=== PATIENT | female | born 1985 | race Caucasian/White ===

== ENCOUNTER 2019-03-11 13:08 | Inpatient (IN) | payer OTHER ==
[~2019-03-11 13:08] MED LIST: Bupivacaine/Epinephrine 0.25% 30 ML VIAL ONE; Butorphanol Tartrate 1 MG/ML VIAL SLOW IVP PRN; Carboprost 250 MCG/ML AMP IM PRN; Diphenoxylate HCl/Atropine Tablet PO PRN; Docusate 100 MG CAP PO PRN; HYDROcodone/Acetaminophen 5/325 mg Tablet PO PRN; Lidocaine 1% (PF) 30 ML VIAL SC PRN; Methylergonovine 0.2 MG/ML VIAL IM PRN; Misoprostol 200 MCG TAB PR PRN; NS w/ Oxytocin 10 units 500 ML IV SCH; Ondansetron PF 4 MG/2 ML Vial IVP PRN; Promethazine HCl 25 MG/ML VIAL IM PRN
[2019-03-11 18:24] VITALS: BMI 25.0
[2019-03-11 18:30] LABS: Hemoglobin 10.3 g/dL (12.0-16.0); Mean Corpuscular HGB CONC 30.8 g/dL (32.0-36.0); Mean Corpuscular Hemoglobin 26.3 pg (27.0-31.0); Mean Corpuscular Volume 85.6 fL (78.0-98.0); Platelet Count 260 thou/uL (130-400); RBC Distribution Width 15.2 % (11.5-14.5); Red Blood Cell (RBC) Count 3.92 mill/uL (4.20-5.40); White Blood Cell (WBC) Count 9.8 thou/uL (4.8-10.8)
[2019-03-11 19:11] LABS: Syphilis Antibody Nonreactive (Nonreactive); Syphilis Antibody Index 0.04 S/CO (<1.00 Non-Reactive)
[2019-03-11 19:12] LABS: HBSAg Index 0.27 S/CO (0-0.99); Hep B Surf Ag Non-Reactive S/CO (NonReactive)
--- NOTE | 2019-03-11 20:00 | PDOC.EVN ---
Event Note - Event Note Event Note: Called to LDR. Pt. pushing resulting in precipitous of vigorous baby over intact perineum. Apgars pending. Placenta remained undelivered until arrival of Dr. Cuevas.
[2019-03-11] MEDS: NS w/ Oxytocin 10 units 500 ML IV SCH (20:45)
--- NOTE | 2019-03-11 20:52 | PDOC.LDHP ---
Labor and Delivery H&P HPI: 33 year old at 39 weeks and 3 days for elective induction of labor. Current gestational age (weeks): 39 Due date: 03/15/19 Grav: 5 Para: 2 Current complications: none Abnormal US findings: No Current medications: pre- vitamins Previous surgical history: none Allergies/Adverse Reactions: Allergies Allergy/AdvReac Type Severity Reaction Status Date / Time No Known Drug Allergies Allergy Verified 03/11/19 18:20 Social history: none - Physical Exam Vital signs reviewed and normal: yes General: NAD, resting Heart: RRR Lungs: nonlabored breathing Abdomen: NTTP Extremeties: no edema FHT: category 1 - Assessment L&D Assessment: elective induction at term - Plan Plan: admit to L&D, cervical ripening
[2019-03-11] MEDS ORDERED: Fentanyl 4 mcg/Bup 0.1% Cadd 100 ML ONE (22:35)
[2019-03-11] MEDS ORDERED: Acetaminophen 325 MG TAB PO PRN (23:11)
[2019-03-11] MEDS ORDERED: Eucerin (Mineral Oil/Petrolatum,White) 30 gm Jar TOP PRN (23:11)
[2019-03-11] MEDS ORDERED: Promethazine HCl 25 MG/ML VIAL IM PRN (23:11)
[2019-03-11] MEDS ORDERED: Lactated Ringer's 500 ML IV PRN (23:11)
[2019-03-11] MEDS ORDERED: Ondansetron PF 4 MG/2 ML Vial IVP PRN (23:11)
[2019-03-11] MEDS ORDERED: diphenhydrAMINE 50 MG/ML VIAL IVP PRN (23:11)
[2019-03-11] MEDS ORDERED: ePHEDrine/0.9% NaCl/PF SYRINGE 50 mg/10 ml SLOW IVP PRN (23:11)
[2019-03-11] MEDS: Lactated Ringer's 1,000 ML IV SCH (23:11)
[2019-03-11] MEDS ORDERED: Naloxone HCl 0.4 mg/ml Vial IVP PRN ×2 (23:11)
[2019-03-11] MEDS ORDERED: Fentanyl 4 mcg/Bupivacaine 0.1% Cassette 100 ML EPIDURAL SCH (23:15)
[2019-03-11] MEDS ORDERED: Communication Order-Pharmacy FS SCH (23:15)
[2019-03-11] MEDS: NS / Oxytocin 40 units/1000ml 1,000 ML IV PRN (23:30)
[2019-03-12] MEDS: NS / Oxytocin 40 units/1000ml 1,000 ML IV PRN (02:08)
[2019-03-12] MEDS ORDERED: Measles/Mumps/Rubella 10 MCG/0.5 ML VIAL SC ONE (03:11)
[2019-03-12] MEDS ORDERED: Adacel (T-DAP) 0.5 ML SYRINGE IM ONE (03:11)
[2019-03-12] MEDS ORDERED: Milk Of Magnesia 30 ML UDCUP PO PRN (03:11)
[2019-03-12] MEDS ORDERED: NS / Oxytocin 40 units/1000ml 1,000 ML IV SCH (03:11)
[2019-03-12] MEDS ORDERED: Methylergonovine 0.2 MG/ML VIAL IM PRN (03:11)
[2019-03-12] MEDS ORDERED: diphenhydrAMINE 25 MG CAP PO PRN (03:11)
[2019-03-12] MEDS ORDERED: Misoprostol 200 MCG TAB VAG PRN (03:11)
[2019-03-12] MEDS ORDERED: HYDROcodone/Acetaminophen 5/325 mg Tablet PO PRN ×2 (03:11)
[2019-03-12] MEDS ORDERED: Promethazine HCl 25 MG/ML VIAL IM PRN (03:11)
[2019-03-12] MEDS ORDERED: Preparation H Ointment 28 GM TUBE PR PRN (03:11)
[2019-03-12] MEDS ORDERED: Lanolin Ointment 7 GM TUBE TOP PRN (03:11)
[2019-03-12] MEDS ORDERED: Ondansetron PF 4 MG/2 ML Vial IVP PRN (03:11)
[2019-03-12] MEDS ORDERED: Bisacodyl 10 MG SUPP PR PRN (03:11)
[2019-03-12] MEDS ORDERED: Docusate Calcium (SURFAK) 240 MG CAP PO SCH (03:15)
[2019-03-12] MEDS: Ibuprofen 800 MG TAB PO SCH ×3 (06:38→20:57)
[2019-03-12 06:43] LABS: Hemoglobin 9.6 g/dL (12.0-16.0); Mean Corpuscular HGB CONC 30.5 g/dL (32.0-36.0); Mean Corpuscular Hemoglobin 26.2 pg (27.0-31.0); Platelet Count 210 thou/uL (130-400); RBC Distribution Width 14.9 % (11.5-14.5); Red Blood Cell (RBC) Count 3.67 mill/uL (4.20-5.40); White Blood Cell (WBC) Count 18.2 thou/uL (4.8-10.8)
[2019-03-12] MEDS: NS w/ Oxytocin 10 units 500 ML IV SCH (09:16)
[2019-03-12] MEDS: Lactated Ringer's 1,000 ML IV SCH ×2 (09:16→09:22)
[2019-03-12] MEDS: Ferrous Sulfate 325 MG TAB PO SCH ×2 (10:24→16:39)
[2019-03-12] MEDS: Docusate Calcium (SURFAK) 240 MG CAP PO SCH ×2 (10:25→20:57)
--- NOTE | 2019-03-12 20:21 | PDOC.PP ---
Post Progress Note Post Day #: 1 PO intake tolerated: yes Flatus: yes Ambulation: yes Vital Signs (12 hours) Temp Pulse Resp BP 03/12/19 17:00 97.7 F 57 L 18 111/59 L 03/12/19 12:07 98.3 F 64 20 100/55 L Weight Weight 160 lb - Physical Examination General: NAD Cardiovascular: no m/r/g, RRR Respiratory: clear to auscultation bilaterally Abdominal: + bowel sounds, lochia, no distention Extremities: negative homans (B) Neurological: no gross focal deficits Psychiatric: A&Ox3, normal affect (DC in AM) Result Diagrams: 03/12/19 06:32 Additional Labs: Post Labs Blood Type A POSITIVE 03/11/19 18:14 Hep Bs Antigen Non-Reactive S/CO (NonReactive) 03/11/19 18:14
--- NOTE | 2019-03-13 03:46 | DN ---
DATE OF PROCEDURE: 03/11/2019 PREOPERATIVE DIAGNOSIS: Intrauterine at 39 weeks and 3 days with a term induction of labor. POSTOPERATIVE DIAGNOSIS: Intrauterine at 39 weeks and 3 days with a term induction of labor. PROCEDURE: Spontaneous vaginal delivery over first-degree laceration of the perineum. FINDINGS: Viable male , weighing 3061 g or 6 pounds 12 ounces. Apgars 9 and 9. QUANTITATIVE BLOOD LOSS: 61. COMPLICATIONS: None. PROCEDURE IN DETAIL: The patient presented to [facility] where she was admitted to the labor and delivery service. The patient underwent a normal and uneventful labor with normal cervical dilatation until she was found to be completely dilated. She was then allowed to push and was able to bring the baby down and delivered the baby in a vertex presentation without difficulties. Once the head delivered in occiput anterior position, the shoulders followed spontaneously along with the rest of the baby's body. Once out the baby's mouth and nose were bulb suctioned. The cord was clamped and cut and baby was handed to waiting attendants. Cord blood was collected. Gentle fundal massage was performed and the placenta delivered intact without problems. Hemostasis was assured. Quantitative blood loss was calculated. Inspection of the cervix, vaginal vault, and perineum did not reveal any lacerations needing suturing. Once again, hemostasis was within normal limits and the patient was allowed to recover in the labor and delivery room. Baby went to nursery. Job ID: [id number]
[2019-03-13] MEDS: Ibuprofen 800 MG TAB PO SCH ×2 (06:35→09:43)
[2019-03-13 08:34] VITALS: BP 98/55; TEMP 98.6
[2019-03-13] MEDS: Docusate Calcium (SURFAK) 240 MG CAP PO SCH (09:42)
[2019-03-13] MEDS: Ferrous Sulfate 325 MG TAB PO SCH (09:42)
== END 2019-03-13 13:50 | disposition home or self-care (01) | DRG 807 ==
LOC: EEVIPCON 16:57 → L&D 16:57 → 3SW 03-12 06:27 → EDSTATUS 03-15 13:06
PROVIDERS: ADMIT Obstetrics & Gynecology; ATTEND Obstetrics & Gynecology
PROC: 3E0P7VZ Introduction of Hormone into Female Reproductive, Via Natural or Artificial Opening (ICD-10-PCS; principal; 2019-03-11)
PROC: 10E0XZZ Delivery of Products of Conception, External Approach (ICD-10-PCS; 2019-03-11)
PROC: 3E033VJ Introduction of Other Hormone into Peripheral Vein, Percutaneous Approach (ICD-10-PCS; 2019-03-11)
DX: O70.0 First degree perineal laceration during delivery (principal); Z37.0 Single live birth; Z3A.39 39 weeks gestation of pregnancy
CPT/HCPCS: 36415; 85027; 86780; 86850; 86900; 86901; 87340; J2590